=== PATIENT | male | born 1945 | race Caucasian/White ===

== ENCOUNTER 2017-01-26 19:17 | Emergency (ER) | payer MEDICAID ==
[2017-01-26 19:37] VITALS: BP 117/76; PULSE 81; RESP 97; TEMP 99.9; O2SAT 97
--- NOTE | 2017-01-26 20:08 | C.PDOC ---
History Of Present Illness 71 y/o male c/o pain and swelling to left anterior forearm after getting a mosquito bite. no analgesic taken. no cold compress applied. no fever or chills. pt sts pain and swelling less today than yesterday. Time Seen by Provider: 01/26/17 19:50 Chief Complaint (Nursing): Upper Extremity Problem/Injury History Per: Patient History/Exam Limitations: no limitations Onset/Duration Of Symptoms: Days (1) Quality: Sharp Severity: Moderate Pain Scale Rating Of: 5 Exacerbating Factor(s): Nothing Recent travel outside of the [place]: No Past Medical History Vital Signs: Last Vital Signs Temp 99.9 F H 01/26/17 19:32 Pulse 81 01/26/17 19:32 Resp 97 H 01/26/17 19:32 BP 117/76 01/26/17 19:32 Pulse Ox 97 01/27/17 00:25 - Medical History PMH: HTN Family History: States: Unknown Family Hx - Social History Hx Alcohol Use: No Hx Substance Use: No - Immunization History Hx Tetanus Toxoid Vaccination: No Hx Influenza Vaccination: No Hx Pneumococcal Vaccination: No Review Of Systems Constitutional: Negative for: Fever, Chills Musculoskeletal: Positive for: Arm Pain (left) Skin: Positive for: Other (mosquito bite left arm) Physical Exam - Physical Exam Appears: Non-toxic Skin: Normal Color, Warm, Dry Head: Atraumatic, Normacephalic Extremity: Tenderness (left forearm at site of 1 mm erythematous bite mild with minimal swelling, from of arm, no red streakss. no swelling to ar,. ) Pulses: Left Radial: Normal, Right Radial: Normal Neurological/Psych: Oriented x3, Normal Speech, Normal Cognition, Normal Cranial Nerves, Normal Sensation, Normal Reflexes ED Course And Treatment O2 Sat by Pulse Oximetry: 97 Disposition Counseled Patient/Family Regarding: Diagnosis, Need For Followup, Rx Given - Disposition Referrals: Abby Rebolledo MD [Medical Doctor] - Disposition: HOME/ ROUTINE Disposition Time: 20:05 Condition: STABLE Additional Instructions: Para la hinchazn en el sitio de la mordedura del insecto, aplicar la compresa fra al candis por 10 minutos a la vez. Tylenol 650 mg por va oral cada 4-6 horas para el dolor si es necesario. Siga con ricks mdico en unos [place]. Regrese al ER para cualquier enrojecimiento o calor en el sitio de la picadura de insecto o cualquier otro sobre los sntomas. Prescriptions: Acetaminophen [Tylenol 325mg tab] 650 mg PO Q6 #30 tab Instructions: Insect Bite or Sting (ED) Forms: Gen Discharge Inst [place], [employer] ([place]atian) Print Language: SWISS - Clinical Impression Clinical Impression: Insect bite of right forearm - Scribe Statement The provider has reviewed the documentation as recorded by the Scribe Lissa Grant All medical record entries made by the Scribe were at my direction and personally dictated by me. I have reviewed the chart and agree that the record accurately reflects my personal performance of the history, physical exam, medical decision making, and the department course for this patient. I have also personally directed, reviewed, and agree with the discharge instructions and disposition.
== END 2017-01-26 20:11 | disposition home or self-care (01) ==
LOC: C.ER 19:17
DX: S50.861A Insect bite (nonvenomous) of right forearm, initial encounter (principal); W57.XXXA Bitten or stung by nonvenomous insect and other nonvenomous arthropods, initial encounter

== ENCOUNTER 2017-07-07 17:40 | Emergency (ER) | payer MEDICAID, MEDICARE ==
[2017-07-07 18:11] VITALS: BMI 29.1
[2017-07-07 18:22] VITALS: BP 105/66; PULSE 83; RESP 18; TEMP 98.8; O2SAT 97
[2017-07-07] MEDS ORDERED: Bacitracin 500 Units/gm Oint Foilpak UD ONE (19:45)
--- NOTE | 2017-07-07 19:52 | C.PDOC ---
History Of Present Illness 72 year old male presents to the ER with a complaint of a nonhealing rash to the right lower leg. Patient reports it has not been healing despite use of amlactin and doxycycline. Patient states the rash has now been itching and appears to be draining. Denies fever or recent injury. Time Seen by Provider: 07/07/17 19:18 Chief Complaint (Nursing): Abnormal Skin Integrity History Per: Patient History/Exam Limitations: no limitations Current Symptoms Are (Timing): Still Present Location Of Injury: Right: Leg Quality Of Symptoms: Itching, Draining Recent travel outside of the [place]: No Past Medical History Reviewed: Historical Data, Nursing Documentation, Vital Signs Vital Signs: Last Vital Signs Temp 98.8 F 07/07/17 18:17 Pulse 83 07/07/17 18:17 Resp 18 07/07/17 18:17 BP 105/66 07/07/17 18:17 Pulse Ox 97 07/08/17 02:40 - Medical History PMH: HTN Family History: States: Unknown Family Hx - Social History Hx Alcohol Use: No Hx Substance Use: No - Immunization History Hx Tetanus Toxoid Vaccination: No Hx Influenza Vaccination: Yes (2017) Hx Pneumococcal Vaccination: No Review Of Systems Constitutional: Negative for: Fever Skin: Positive for: Rash, Other (Draining, Itchy) Physical Exam - Physical Exam Appears: Non-toxic, No Acute Distress Skin: Warm, Dry Head: Atraumatic, Normacephalic Eye(s): bilateral: Normal Inspection Extremity: Normal ROM, Capillary Refill (<2 seconds), No Deformity, No Swelling , Other (4x5cm area of coarse moderately dry skin with a few small papules and small blisters draining minimal yellowish fluid. No warmth, erythema, or swelling.) Pulses: Left Dorsalis Pedis: Normal, Right Dorsalis Pedis: Normal Neurological/Psych: Oriented x3, Normal Speech, Normal Motor, Normal Sensation Gait: Steady ED Course And Treatment O2 Sat by Pulse Oximetry: 97 (Room air) Pulse Ox Interpretation: Normal Progress Note: Patient is resting comfortably in the ER in no acute distress, will start on different oral and topical antibiotics and instruct to follow up with PMD or return to the ER if symptoms worsen. Disposition Counseled Patient/Family Regarding: Diagnosis, Need For Followup, Rx Given - Disposition Referrals: [facility] [Outside] Disposition: HOME/ ROUTINE Disposition Time: 19:48 Condition: STABLE Additional Instructions: Please follow up with PMD for wound check in 2 days Keep leg elevated Apply bactroban oint Take bactrim as directed Return to ER if worse Prescriptions: Mupirocin 2% Ointment [Bactroban Ointment] 1 appl TP BID #1 tube Sulfamethoxazole/Trimethoprim [Bactrim Ds Tablet] 1 each PO BID #14 tablet Instructions: Wound Infection (ED) Forms: [employer] (Lithuanian) Print Language: MOHAWK - Clinical Impression Clinical Impression: Infected wound - PA / STICKER ON / Resident Statement MD/DO has reviewed & agrees with the documentation as recorded. - Scribe Statement The provider has reviewed the documentation as recorded by the Scribyobany Gama All medical record entries made by the Adyibyobany were at my direction and personally dictated by me. I have reviewed the chart and agree that the record accurately reflects my personal performance of the history, physical exam, medical decision making, and the department course for this patient. I have also personally directed, reviewed, and agree with the discharge instructions and disposition.
== END 2017-07-07 20:06 | disposition home or self-care (01) ==
LOC: C.ER 17:40
DX: L08.89 Other specified local infections of the skin and subcutaneous tissue (principal); I10 Essential (primary) hypertension